=== PATIENT | female | born 1975 | race American Indian/Alaskan Native ===

== ENCOUNTER → 2022-05-13 13:38 | Outpatient (BNVA) | payer OTHER, SELFPAY | PROVIDERS: PCP Internal Medicine; Visit Provider Internal Medicine | DX: S20.214A Contusion of middle front wall of thorax, initial encounter (principal); S43.151A Posterior dislocation of right acromioclavicular joint, initial encounter; S63.501A Unspecified sprain of right wrist, initial encounter; S29.012A Strain of muscle and tendon of back wall of thorax, initial encounter; W01.198A Fall on same level from slipping, tripping and stumbling with subsequent striking against other object, initial encounter | CPT/HCPCS: 72072; 73030; 99204 ==

== ENCOUNTER → 2022-05-16 14:13 | Outpatient (BNVA) | payer OTHER, SELFPAY | PROVIDERS: PCP Internal Medicine; Visit Provider Internal Medicine | DX: R10.2 Pelvic and perineal pain (principal); M25.511 Pain in right shoulder; M25.531 Pain in right wrist; Z91.81 History of falling | CPT/HCPCS: 73110; 73130; 99214 ==

== ENCOUNTER → 2022-05-24 08:06 | Outpatient (BNVA) | payer OTHER, SELFPAY | PROVIDERS: PCP Internal Medicine; Visit Provider Internal Medicine | DX: M25.551 Pain in right hip (principal); M25.561 Pain in right knee; S63.501A Unspecified sprain of right wrist, initial encounter; W01.198A Fall on same level from slipping, tripping and stumbling with subsequent striking against other object, initial encounter | CPT/HCPCS: 73502; 73564; 99213 ==

== ENCOUNTER → 2022-05-31 07:53 | Outpatient (BNVA) | payer OTHER, SELFPAY | PROVIDERS: PCP Internal Medicine; Visit Provider Internal Medicine | DX: S63.501A Unspecified sprain of right wrist, initial encounter (principal); S70.01XA Contusion of right hip, initial encounter; W01.198A Fall on same level from slipping, tripping and stumbling with subsequent striking against other object, initial encounter | CPT/HCPCS: 99213 ==

== ENCOUNTER → 2022-06-21 15:12 | Outpatient (BNVA) | payer OTHER, SELFPAY | PROVIDERS: PCP Internal Medicine; Visit Provider Internal Medicine | DX: S63.501D Unspecified sprain of right wrist, subsequent encounter (principal); S70.01XD Contusion of right hip, subsequent encounter; W01.198D Fall on same level from slipping, tripping and stumbling with subsequent striking against other object, subsequent encounter | CPT/HCPCS: 99213 ==

== ENCOUNTER → 2022-07-12 14:54 | Outpatient (BNVA) | payer OTHER, SELFPAY | PROVIDERS: PCP Internal Medicine; Visit Provider Internal Medicine | DX: S63.501D Unspecified sprain of right wrist, subsequent encounter (principal); S70.01XD Contusion of right hip, subsequent encounter; W18.30XD Fall on same level, unspecified, subsequent encounter; M25.561 Pain in right knee | CPT/HCPCS: 99213 ==

== ENCOUNTER 2022-07-26 14:30 | Outpatient (RCR) | payer OTHER, SELFPAY ==
--- NOTE | 2022-06-15 14:52 | MHC.OT.EP ---
[address] [phone] Occupational Therapy Plan of Care Date of Evaluation: 06/15/22 Diagnosis: Right wrist sprain Pain Location: Pain: 8/10 R thumb and radial wrist Best: 5/10 Pain Score: 8 Pain Scale Used: Numeric (0 - 10) Aggravating Factors: Forceful grasp, lifting dishes, weightbearing Alleviating Factors: Ice, heat Assessment: Pt is a 46 y/o female referred to OT s/p slip and fall injury resulting in right wrist sprain on 05/13/22. X-rays were negative for fracture or dislocation. Pt has weaned out of wrist cock up splint and is wearing for protection only. 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 A 70.5% limitation was reported per the Quick DASH assessment. Nevaeh would benefit from short term skilled OT to address noted barriers and assist in return to PLOF. Frequency and Duration: The patient will be seen 2x/wk for 4 weeks Short Term Goals: Decrease pain in R wrist <5/10 IND with HEP Improve L gross grasp by 10# Saw Tailer Goals: Pain free with BADL's/IADLS IND with progression of HEP Gross grasp >25# Quick DASH <25% Treatment Plan: Therapeutic Exercise Therapeutic Activity Home Exercise Program Patient Education Ultrasound Paraffin Fluidotherapy MHP Cold Packs Joint Mobilization Soft Tissue Mobilization Kinesiotaping Electronically Signed By: Pema Blackwell MS OTR/L Please Sign and return to therapist. Thank you once again for your referral.
--- NOTE | 2022-07-29 07:42 | MHC.OT.DC ---
[address] [phone] F: [phone] Occupational Therapy Discharge Note Patient Name: Nevaeh Phelps Provider: Dr Thaddeus Ivey Diagnosis: Right wrist sprain Date of Evaluation: 06/15/22 Date of Discharge: Treatments to Date: 8 Discharge Status: Independent with HEP Discharge Summary: Nevaeh was referred to OT with right wrist sprain at work. She continues to report pain w/ certain activities (hand writing, lifting objects, using scissors) and has been reporting more 'muscle spasms' along dorsal forearm. Not witnessed in therapy, but pt w/ significant fascial adhesions (B/L'ly). She has progressed w/ increased gross grasp, but still avoiding heavy lifting and forceful use of hand/wrist, especially w/ wrist deviation. She has been educated on modification techniques and recommend she trial neoprene forearm based thumb spica orthosis, has not purchased yet. We have educated on muscle relaxation techniques and use of heat and ice appropriately. Most goals met but no significant gains made in the last couple weeks, she continues to have persistent moderate pain at times. Electronically Signed By: Kym Peralta OTR/L CHT Reviewed/agree with student documentation: Therapist: Please Sign and return to therapist, thank you for your referral.
== END 2022-07-29 07:42 | disposition home or self-care (01) ==
LOC: HO.OT 14:30
PROVIDERS: PCP Internal Medicine; Visit Provider Internal Medicine
DX: S63.501D Unspecified sprain of right wrist, subsequent encounter (principal)
CPT/HCPCS: 97033; 97035; 97110; 97140; 97165

== ENCOUNTER 2022-08-02 15:00 | Outpatient (RCR) | payer OTHER, SELFPAY ==
--- NOTE | 2022-07-01 13:10 | MHC.PT.EP ---
[facility] [place] [facility] [place] [facility] [place] Office [address] [phone] F: [phone] F: [phone] F: [phone] F: [phone] Physical Therapy Plan of Care Date of Evaluation: Date of Surgery: NA Diagnosis: PAIN BUTTOCKS/HIP AREA S/P FALL Assessment: Pt IS 46 YO F REFERRED TO PT FROM WITH R BUTTOCK AND HIP PAIN S/P FALL WHILE AT WORK. XRAY R HIP NEGATIVE FOR ACUTE FX BUT CANNOT FULLY R/O OCCULT FX OR BONE BRUISE. PRESENTS TO PT WITH ANTALGIC GT (DECREASED WB ON R BUT ALSO C/O BAD KNEE ). Pt WITH LIMITED R HIP FLEXION STRENGTH AND SOME LIMITED R HIP FLEXIBILITY. 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 SHOULD BENEFIT FROM PT TO ADDRESS THESE ISSUES Frequency and Duration: The patient will be seen 2X/WK X 4WKS Short Term Goals: 1. INCREASED AWARENESS HIP AND BACK CARE 2. Pt TO PERF 2-3 TASKS WITH PROPER BODY MECH [facility] Goals: 1. I HEP WITH DC EX PLAN 2. DECREASED R HIP/BUTTOCK PAIN AT LEAST 50% WITH ADLS Treatment Plan: Modalities to reduce pain, spasms and effusion. Manual therapy to restore motion and function. Therapeutic exercise to improve strength and flexibility. Neuromuscular re-education for posture and balance. Therapeutic activities to return to functional activities of daily living. Electronically signed by: TEDDY BAILEY PT Please sign and return to therapist. Thank you for your referral.
--- NOTE | 2022-08-23 12:55 | MHC.PT.DC ---
[facility] [place] [facility] [place] [facility] [place] Office [address] Renato Sparks [address] [phone] F: [phone] F: [phone] F: [phone] F: [phone] Physical Therapy Discharge Report Diagnosis: PAIN BUTTOCKS/HIP AREA S/P FALL Date of Surgery: NA Date of Evaluation: 07/01/22 Date of Discharge: 08/23/22 Treatments to Date: 7 Cancellations to Date: No Shows to Date: Discharge Status: Improved Function Independent with HEP Discharge Summary: REPORTS ORDERED THERAROLLER, GOOD PERF EXS, TO SEE WC ON MONDAY AND CALL AFTER. NO CALL, NO FURTHER APPTS SCHEDULED Electronically signed by: TEDDY BAILEY PT Please sign and return to therapist. Thank you for your referral.
== END 2022-08-23 12:55 | disposition home or self-care (01) ==
LOC: HO.PT 15:00
PROVIDERS: PCP Internal Medicine; Visit Provider Internal Medicine
DX: M25.551 Pain in right hip (principal); M76.01 Gluteal tendinitis, right hip; Z91.81 History of falling
CPT/HCPCS: 97110; 97140; 97161

== ENCOUNTER → 2022-08-05 13:47 | Outpatient (BNVA) | payer OTHER, SELFPAY | PROVIDERS: PCP Internal Medicine; Visit Provider Internal Medicine | DX: S70.01XD Contusion of right hip, subsequent encounter (principal); S63.501D Unspecified sprain of right wrist, subsequent encounter; W18.30XD Fall on same level, unspecified, subsequent encounter; M62.81 Muscle weakness (generalized) | CPT/HCPCS: 99213 ==

== ENCOUNTER → 2022-08-23 11:14 | Outpatient (BNVA) | payer OTHER, SELFPAY | PROVIDERS: PCP Internal Medicine; Visit Provider Internal Medicine | DX: M25.531 Pain in right wrist (principal) | CPT/HCPCS: 99213 ==

== ENCOUNTER 2022-09-01 11:57 | Outpatient (REF) | payer OTHER, SELFPAY ==
--- NOTE | 2022-09-01 08:00 | EMG_ITS ---
FINDINGS: Right median, ulnar, motor, and sensory studies were performed. Right radial sensory study was performed and paraspinal muscles were tested. IMPRESSION: [id number] right median neuropathy across carpal tunnel. EMG data was somewhat limited and radiculopathy could not be completely ruled out. MD CHASITY Clay/JULIA / [id number]
== END 2022-09-01 11:58 | disposition home or self-care (01) ==
LOC: HO.NEURO 11:57
PROVIDERS: PCP Internal Medicine; Visit Provider Internal Medicine
DX: R20.2 Paresthesia of skin (principal)
CPT/HCPCS: 95886; 95909

== ENCOUNTER → 2022-09-12 15:28 | Outpatient (BNVA) | payer OTHER, SELFPAY | PROVIDERS: PCP Internal Medicine; Visit Provider Internal Medicine | DX: M79.641 Pain in right hand (principal) | CPT/HCPCS: 99213 ==

== ENCOUNTER → 2024-03-28 13:09 | Outpatient (BNVA) | payer OTHER, SELFPAY | PROVIDERS: PCP Internal Medicine; Visit Provider Physician Assistant Medical | DX: S69.91XA Unspecified injury of right wrist, hand and finger(s), initial encounter (principal); W22.8XXA Striking against or struck by other objects, initial encounter | CPT/HCPCS: 73130; 99202 ==

== ENCOUNTER → 2024-04-01 14:58 | Outpatient (BNVA) | payer OTHER, SELFPAY | PROVIDERS: PCP Internal Medicine; Visit Provider Physician Assistant Medical | DX: M79.89 Other specified soft tissue disorders (principal) | CPT/HCPCS: 99213 ==

== ENCOUNTER → 2024-04-15 14:53 | Outpatient (BNVA) | payer OTHER, SELFPAY | PROVIDERS: PCP Internal Medicine; Visit Provider Physician Assistant Medical | DX: S69.91XD Unspecified injury of right wrist, hand and finger(s), subsequent encounter (principal); W22.8XXD Striking against or struck by other objects, subsequent encounter | CPT/HCPCS: 99213 ==

== ENCOUNTER 2024-09-10 07:34 | Emergency (ER) | payer BC, SELFPAY ==
--- NOTE | ~2024-09-10 | XR_ITS ---
EXAMINATION: XR KNEE 1-2 VIEWS RIGHT HISTORY: pain COMPARISON: Comparison is made with the prior examination dated 05/24/2022. FINDINGS: Three views of the right knee are submitted. Osseous mineralization is normal. There is no fracture or dislocation. There is severe osteoarthritis of the medial compartment with joint space narrowing and osteophyte formation. There is moderate osteoarthritis of the lateral and patellofemoral compartments. There is a small joint effusion. XR/XR knee RT 2V IMPRESSION: Small joint effusion. Osteoarthritis of the right knee as described Electronically signed by: Alexsander Kapadia MD 09/10/2024 08:22 AM EDT
--- NOTE | ~2024-09-10 | US_ITS ---
EXAMINATION: US TRIPLEX LOWER EXTREMITY, RIGHT CLINICAL INFORMATION: Pain, right lower extremity COMPARISON: None available. TECHNIQUE: Color-flow triplex imaging with spectral analysis and compression Doppler were performed on the right lower extremity. FINDINGS: Respiratory variation, normal compression and augmented flow are noted throughout the interrogated common femoral vein, superficial femoral vein, profunda femoral vein, popliteal vein and midcalf peroneal and posterior tibial venous segments. There is no Fernandez's cyst. US/US venous duplex LE RT IMPRESSION: No acute deep venous thrombosis involving the right lower extremity. Negative for DVT. Electronically signed by: Abdi Baker MD 09/10/2024 10:17 AM EDT
[2024-09-10 07:36] VITALS: BP 143/103; PULSE 91; RESP 18; TEMP 37; O2SAT 100; BMI 52.3
--- OUTSIDE RECORDS SUMMARY | 2024-09-10 08:13 | XMS_ITS | Continuity of Care Document ---
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 Developer Name Role Phone Gena CORDOVA, Henrique Moss Primary Care Physician [place] [facility] [place] 08/[place] - 09/08/24 [facility] [address] [place] [id number] Attending Physician: Jose Hackett Admitting Physician: Jose Hackett Referring Physician: Jose Hackett Encounter Type: Triage Allergies, Adverse Reactions, Alerts Substance Criticality Severity Reaction Reaction Severity Status clarithromycin swelling Activ e penicillin Active penicillins Angioedema Active oxyCODONE Unknown Active HYDROcodone Unknown Active diclofenac kidney dysfunction Active sulfa drugs 1 Unknown severe hives Active Voltaren kidney problems rash Active Biaxin extreme swelling Act bridger OxyContin Active Vicodin Active Bee Stings Active Strawberries Active Tomatoes Active Percocet 7.5/325 vomiting Act bridger Other Food Allergy cottage cheese Active Other Environmental Allergy 2 Active 1sulfa allergy 2spiders Immunizations Given and Recorded Vaccine Date Status Refusal Reason SARS-CoV-2 (COVID-19) mRNA-1273 vaccine 09/03/20 R ecorded SARS-CoV-2 (COVID-19) mRNA-1273 vaccine 08/01/20 R ecorded Medications Albuterol (Eqv-ProAir HFA) 90 mcg/inh inhalation aerosol 2 puffs, Inhalation, Every 6 hours, # 6.7 Gm, 11 Refills, Maintenance, 09/05/23 4:03:00 PM EDT, [email or web address] #[id number], Partial fill upon patient request if the prescription is for a schedule II opioid drug., 2 puffs Inhalation Every 6 hours, 177.8, cm, 09/05/23 15:39:00 EDT, Height, 181.8, kg,08/21/23 15:18:00 EDT, Dry Weight Start Date: 09/05/23 Status: Ordered Quantity: 6.7 Unit: g Repeat number: 12 albuterol 0.083% inhalation solution 3 mL = 2.5 mg, Neb, Every 6 hours, PRN Wheezing/Shortness of Breath, # 360 mL, 11 Refills, Maintenance, 09/05/23 4:03:00 PM EDT, Inhalation Solution, [email or web address] #[id number], Partial fill upon patient request if the prescription is for a schedule II opioid drug. Disregard previous script with albuterol inhaled solution, 177.8, cm, 09/05/23 15:39:00 EDT, Height, 181.8, kg, 08/21/23 15:18:00 EDT, Dry Weight Start Date: 09/05/23 Status: Ordered Quantity: 360.0 Unit: mL Repeat number: 12 aluminum hydroxide/magnesium hydroxide/simethicone 200 mg-200 mg-20 mg/5 mL oral suspension 10 mL, By Mouth, 4 times a day, PRN for indigestion, # 400 mL, 0 Refills, Maintenance, 03/27/22 2:52:00 PM EST, Suspension, [email or web address] #[id number], Partial fill upon patient request if the prescription is for a schedule II opioid drug., 10 mL By Mouth 4 times a day,PRN:for indigestion, 178, cm, 03/27/22 10:02:00 EST, Height, 203.2, kg, 03/25/22 7:10:00 EST, Dry Weight Start Date: 03/27/22 Status: Ordered Quantity: 400.0 Unit: mL Repeat number: 1 amLODIPine 10 mg oral tablet TAKE 1 TABLET BY MOUTH EVERY DAY Start Date: 08/09/24 Status: Ordered Repeat number: 1 Bilateral Juxtafit Thigh-high Compression Garments with 2 pairs of hybrid socks Bilateral Juxtafit Thigh-high Compression Garments with 2 pairs of hybrid socks, See Instructions, # 1 kit, Refills 0, Tot. Refills 0, Maintenance, Dx: Lymphedema. Use daily up to 23 hours per day., 03/28/23 5:02:00 PM EST, Supply Start Date: 03/28/23 Status: Ordered Quantity: 1.0 Unit: kit Repeat number: 1 Indication: Lymphedema, not elsewhere classified BiPAP Machine See Instructions, # 1 each, Maintenance, BiPAP 20/12, 04/14/17 4:14:49 PM EST, Compound Start Date: 04/14/17 Status: Ordered Quantity: 1.0 Unit: each Repeat number: 1 cbc in days cbc in days, See Instructions, # 1 each, Refills 0, Tot. Refills 0, Maintenance, Pls send the results to Henrique Avery , her PCP, 01/31/21 9:37:00 AM EDT, Supply Start Date: 01/31/21 Status: Ordered Quantity: 1.0 Unit: each Repeat number: 1 cetirizine 10 mg oral tablet 1 tablet, By Mouth, Daily, # 30 tablet, 11 Refills, Maintenance, 09/05/23 4:03:00 PM EDT, [email or web address] #[id number], 177.8, cm, 09/05/23 15:39:00 EDT, Height, 181.8, kg, 08/21/23 15:18:00 EDT, Dry Weight Start Date: 09/05/23 Status: Ordered Quantity: 30.0 Unit: tablet Repeat number: 12 cholecalciferol 5000 intl units oral capsule 1 capsule = 125 mcg, By Mouth, Daily, along with 2000 mg for a total of 7000 mg daily, Maintenance,01/04/21 3:06:00 PM EDT, Capsule Start Date: 01/04/21 Status: Ordered Repeat number: 1 cyclobenzaprine 5 mg oral tablet prn, 0 Refills, Maintenance, 08/09/24 7:56:00 AM EDT, Partial fill upon patient request if the prescription is for a schedule II opioid drug. Start Date: 08/09/24 Status: Ordered Repeat number: 1 doxycycline hyclate 100 mg oral capsule 1 capsule = 100 mg, By Mouth, 2 times a day, # 20 capsule, 0 Refills, Maintenance, 02/28/21 10:43:00 PM EDT, Capsule, Partial fill upon patient request if the prescription is for a schedule II opioiddrug. Start Date: 02/28/21 Status: Ordered Quantity: 20.0 Unit: capsule Repeat number: 1 Finacea 15% topical gel 1 application, Topically, Daily, PRN as needed, 0 Refills, Maintenance, 02/19/18 12:58:34 PM EDT, Gel Start Date: 02/19/18 Status: Ordered Repeat number: 1 Flonase Allergy Relief 50 mcg/inh nasal spray 1 sprays = 50 mcg, Nares, Both, 2 times a day, PRN Congestion, # 16 Gm, 11 Refills, Maintenance, 09/05/23 4:04:00 PM EDT, [email or web address] #[id number], Partial fill upon patient request if the prescription is for a schedule II opioid drug., 177.8, cm, 09/05/23 15:39:00 EDT, Height, 181.8, kg, 08/21/23 15:18:00 EDT, Dry Weight Start Date: 09/05/23 Stop Date: 08/30/24 Status: Ordered Quantity: 16.0 Unit: g Repeat number: 12 hydrochlorothiazide 25 mg oral tablet 25 mg, 1, tablet, By Mouth, Daily, Maintenance, 01/04/21 3:04:00 PM EDT Start Date: 01/04/21 Status: Ordered Repeat number: 1 hydroxychloroquine 200 mg oral tablet 400 mg, 2, tablet, By Mouth, 2 times a day, Maintenance, 01/04/21 3:04:00 PM EDT Start Date: 01/04/21 Status: Ordered Repeat number: 1 hydrOXYzine hydrochloride 10 mg oral tablet 1-2 tablets, By Mouth, 4 times a day, PRN as needed for itching, 0 Refills, Maintenance, 03/21/18 11:45:36 AM EST, Tablet Start Date: 03/21/18 Status: Ordered Repeat number: 1 levonorgestrel 52 mg intrauterine device 1 each = 52 mg, Intrauterine, Once, # 1 each, 0 Refills, Soft Stop, 05/16/22 5:31:00 PM EST, [facility], Partial fill upon patient request if the prescription is for a schedule II opioid drug., 178, cm, 05/16/22 16:30:00 EST, Height, 198.63, kg, 05/16/22 16:30:00 EST, Dry Weight Start Date: 05/16/22 Status: Ordered Quantity: 1.0 Unit: each Repeat number: 1 lisinopril 2.5 mg oral tablet 2.5 mg, 1, tablet, By Mouth, Daily, # 30 tablet, Refills 0, Tot. Refills 0, Maintenance, 01/31/21 9:43:00 AM EDT, Route to Pharmacy Electronically, [facility], Partial fill upon patient request if the prescription is for a schedule II opioid drug., 177, cm, 01/08/21 4:46:00 EDT, Height, 221.02, kg, 01/03/21 21:12:00 EDT, Dry Weight Start Date: 01/31/21 Status: Ordered Quantity: 30.0 Unit: tablet Repeat number: 1 Metoprolol Succinate ER 50 mg oral tablet, extended release 1 tablet = 50 mg, By Mouth, Daily, # 30 tablet, 0 Refills, Maintenance, 01/03/21 2:02:00 PM EDT, ER Tablet, Partial fill upon patient request if the prescription is for a schedule II opioid drug. Start Date: 01/03/21 Status: Ordered Quantity: 30.0 Unit: tablet Repeat number: 1 Mounjaro 5 mg/0.5 mL subcutaneous solution ADMINISTER 5 MG UNDER THE SKIN EVERY WEEK Start Date: 08/09/24 Status: Ordered Repeat number: 1 Omeprazole = 20 mg, By Mouth, 2 times a day, 0 Refills, Maintenance, 01/14/16 8:54:44 AM EDT Start Date: 01/14/16 Status: Ordered Repeat number: 1 pioglitazone 30 mg oral tablet 1 tablet = 30 mg, By Mouth, Daily, # 30 tablet, 0 Refills, Maintenance, 01/03/21 2:02:00 PM EDT, Tablet, Partial fill upon patient request if the prescription is for a schedule II opioid drug. Start Date: 01/03/21 Status: Ordered Quantity: 30.0 Unit: tablet Repeat number: 1 Provera 10 mg oral tablet 20 mg, 2, tablet, By Mouth, Daily, take 20mg (2tablets) daily for 5 days and the decrease to 10mg (1 tab) daily on 6th day, # 10 tablet, Refills 0, Tot. Refills 0, Maintenance, 12/27/21 7:47:00 PM EDT, Route to Pharmacy Electronically, [id number], Partial fill upon patient request if the prescription is for a schedule II opioid drug., 172.5, cm, 12/27/21 17:21:00 EDT, Height, 199.5, kg, 12/27/21 17:09:00 EDT, Dry Weight Start Date: 12/27/21 Stop Date: 01/01/22 Status: Ordered Quantity: 10.0 Unit: tablet Repeat number: 1 Provera 10 mg oral tablet 10 mg, 1, tablet, By Mouth, Daily, # 30 tablet, Refills 3, Tot. Refills 3, Maintenance, 11/02/21 11:49:00 AM EDT, Route to Pharmacy Electronically, [id number], Partial fill upon patient request if the prescription is for a schedule II opioid drug., 177.8, cm, 09/22/21 15:15:00 EDT, Height, 221.36, kg, 04/26/21 14:38:00 EST, Dry Weight Start Date: 11/02/21 Status: Ordered Quantity: 30.0 Unit: tablet Repeat number: 4 Singulair 10 mg oral tablet 10 mg, 1, tablet, By Mouth, Daily, # 30 tablet, Refills 11, Tot. Refills 11, Maintenance, 09/05/23 4:03:00 PM EDT, Route to Pharmacy Electronically, [facility] #[id number], Partial fill upon patient request if the prescription is for a schedule II opioid drug., 177.8, cm, 09/05/23 15:39:00 EDT,Height, 181.8, kg, 08/21/23 15:18:00 EDT, Dry Weight Start Date: 09/05/23 Status: Ordered Quantity: 30.0 Unit: tablet Repeat number: 12 Trulicity Pen 0.75 mg/0.5 mL subcutaneous solution 0.5 mL = 0.75 mg, Subcutaneous Injection, Every Monday, 0 Refills, Maintenance, 01/03/21 2:01:00 PM EDT, Solution Start Date: 01/03/21 Status: Ordered Repeat number: 1 Ailynxchance Inhub 500 mcg-50 mcg inhalation powder 1 inhalation, Inhalation, 2 times a day, rinse mouth and throat after use, # 1 each, 11 Refills, Maintenance, 09/05/23 4:03:00 PM EDT, Powder, [facility] #[id number], Partial fill upon patient request if the prescription is for a schedule II opioid drug., 1 inhalation Inhalation 2 times a day,Instr:rinse mouth and throat after use, 177.8, cm, 09/05/23 15:39:00 EDT, Height, 181.8, kg, 08/20/2414:18:00 EDT, Dry Weight Start Date: 09/05/23 Status: Ordered Quantity: 1.0 Unit: each Repeat number: 12 Problem List Condition Confirmation Course Effective Dates Status H ealth Status Informant Carpal tunnel syndrome Confirmed 05/08/15 Active DM (diabetes mellitus) Confirmed Active EIN (endometrial intraepithelial neoplasia) Confirmed Active Essential hypertension Confirmed 10/09/13 Active GERD (gastroesophageal reflux disease) Confirmed Active Morbid obesity with BMI of 60.0-69.9, adult Confirmed Active Morbid obesity Confirmed 12/31/18 Active NIKKO (obstructive sleep apnea) Confirmed Active OA (osteoarthritis) Confirmed Active Pulmonary embolus Confirmed Active Rosacea Confirmed 10/27/17 Active Severe obesity Confirmed Active Lupus Confirmed Active Social History Social History Type Response Smoking Status Never smoker entered on: 01/13/16 Sex Sex Representation Female (finding) Patient Care team information Care Team Personnel Name: Liat Nelson RN Position: [facility] ED RN W/OE and Tasks Member Role: Primary Care Nurse Name: Jodi Carranza RN Position: [facility] RN Member Role: Primary Care Nurse Name: Lulu Bailon RN Position: [facility] RN Member Role: Primary Care Nurse Name: Henrique Avery MD Position: [facility] Outreach Member Role: PCP Address: [address] [place] [address], [address] [email or web address]: Name: Yoanna Sepulveda RN Position: [facility] RN Member Role: Primary Care Nurse Name: Adriana Rodriguez RN Position: [facility] RN Member Role: Primary Care Nurse Name: Fiona Cohen RN Position: [facility] AMB Nurse Member Role: Primary Care Nurse Name: Huong Shah RN Position: [facility] RN Member Role: Primary Care Nurse Name: Johanny Rangel RN Position: [facility] RN Member Role: Primary Care Nurse Name: Cas Tang RN Position: [facility] RN Member Role: Primary Care Nurse Care Team Related Persons Name: CESAR DARIO Name: IVY MORA Name: DAVID BEVERLY Name: RONALDO COCHRAN Insurance Providers Guarantor name: FLIP COCHRAN [facility] Plan Information #: 1 Payer: O [employer] Member Number: NA Policy Number: NA Group Number: NA
--- NOTE | 2024-09-10 08:27 | ED_ITS ---
HPI - Extremity Injury (Lower) General Chief Complaint: Extremity Injury, Lower Stated Complaint: R knee pain Time Seen by Provider: 09/10/24 08:01 Source: patient Mode of arrival: ambulatory Limitations: no limitations History of Present Illness ED Provider: CARIDAD MONTIEL PA-C HPI Narrative: 48-year-old female with past medical history significant for lupus, osteoarthritis, morbid obesity presents to the ED today for evaluation of acute on chronic right knee pain x3-4 days. Reports history of severe osteoarthritis in bilateral knees. She typically gets corticosteroid injections in her knees. Her last injection was in May with improvement. At that time, she had mentioned to her doctor that she was having pain behind her right knee. Her provider mentioned that she may have a Fernandez's cyst however she did not have any further imaging to confirm this. Reports on Monday she felt a popping sensation to the back of her right knee. States she has felt unsteady on her right lower extremity since this time. She had another episode this weekend where she felt a popping in the back of her right the along with vibrations , causing her to fall to the ground. Denies head strike or LOC. Not on AC. She has been able to ambulate however is unable to fully bear weight on her right lower extremity due to the discomfort. Has been taking Tylenol and Motrin at home with minimal relief. Her last dose was around 0500 this morning Denies fever, chills, chest pain, shortness of breath, palpitations, calf pain/swelling, numbness/tingling/weakness of the right lower extremity. No recent travel or long car rides. Related Data Allergies Allergy/AdvReac Type Severity Reaction Status Date / Time acetaminophen [From Percocet] Allergy Unconscious Verified 09/10/24 07:39 aliskiren [From Valturna] Allergy Unknown Verified 09/10/24 07:39 oxycodone Allergy Nausea and Verified 09/10/24 07:39 Vomiting valsartan [From Valturna] Allergy Unknown Verified 09/10/24 07:39 Penicillins [PCN] AdvReac Anaphylaxis Verified 09/10/24 07:39 Sulfa (Sulfonamide AdvReac Anaphylaxis Verified 09/10/24 07:39 Antibiotics) Review of Systems Review of Systems: Yes all other systems are reviewed and are negative PMFSH Past Medical History Attestation statement: The following information was validated with the patient. Source: old records reviewed and nursing notes reviewed Social History Social History Advance Directives: No Advance Directives Information Provided: Yes Physical Exam Vital Signs: Vital Signs: Last Vital Signs Temp 98.6 F 09/10/24 07:36 Pulse 91 09/10/24 07:36 Resp 18 09/10/24 07:36 BP 143/103 H 09/10/24 07:36 Pulse Ox 100 09/10/24 07:36 O2 Del Method Room Air 09/10/24 07:36 BMI result Body Mass Index 52.3 hypertensive, vitals otherwise wnl General: Well appearing, in no acute distress. Skin: Warm, dry, intact. No rashes or lesions. Head: Normocephalic, atraumatic. EENT: Hearing is intact b/l. Conjunctiva clear. PERRLA. EOM intact. Moist mucous membranes.? Neck: Supple without LAD Cardiac: Chest wall symmetric. RRR Lungs: Normal respiratory effort without accessory muscle use. CTA bilaterally. Back: No midline spinous or paraspinal tenderness. No step off deformity. Ext: +right knee without noted deformity or overlying skin changes however exam slightly limited due to patient's body habitus. No tenderness to palpation of anterior or lateral aspects of right knee. Tender to palpation of posterior right knee without palpable deformity, mass or fluctuance. Sensation intact to light touch distally. No calf tenderness bilaterally. 2+ DP pulse intact. Ambulating with limping gait. Neuro: AOx3. Normal speech. Course Course Course Narrative: 09 -- x-ray right knee showing small joint effusion and severe osteoarthritic changes. There is no noted fracture or dislocation. Given patient's symptoms, will obtain ultrasound of right lower extremity to rule out DVT/Fernandez's cyst. Medicated with Tylenol. Will continue to monitor. 1038 -- ultrasound the right lower extremity does not demonstrate DVT or Fernandez's cyst. No acute pathology. I have suspicion that patient's symptoms are secondary to severe osteoarthritis in the knee versus ligament or tendon injury. Discussed all workup results with patient. She is agreeable to knee immobilizer and crutches. These have been ordered. She has follow up with her nail specialist at [facility] in 1 week. advised tylenol/motrin for pain. Patient has remained stable throughout ED visit today. Discussed worrisome signs and symptoms and when to return to the ED. All questions answered at this time. Patient is agreeable with disposition and stable for discharge. Medications Administered Discontinued Medications Generic Name Dose Route Start Last Admin Trade Name Onesimo PRN Reason Stop Dose Admin Acetaminophen 975 mg 09/10/24 09:00 09/10/24 09:22 Acetaminophen 325 Mg Tablet PO 09/10/24 09:01 975 mg ONCE ONE Administration Medical Decision Making Medical Decision Making MDM Narrative: 48-year-old female with past medical history significant for lupus, osteoarthrit is, morbid obesity presents to the ED today for evaluation of acute on chronic right knee pain x3-4 days. Hypertensive, vitals otherwise WNL. Not hypoxic or tachycardic. on exam, right knee without noted deformity or overlying skin changes however exam slightly limited due to patient's body habitus. No tenderness to palpation of anterior or lateral aspects of right knee. Tender to palpation of posterior right knee without palpable deformity, mass or fluctuance. Sensation intact to light touch distally. No calf tenderness bilaterally. 2+ DP pulse intact. Ambulating with limping gait. Differential diagnosis includes arthritis, tendonitis, Fernandez's cyst, DVT, MSK sprain/strain, fracture, dislocation. Unlikely neurovascular compromise, threat to limb, compartment syndrome follow up warmth. Presentation not consistent with pseudogout or gout. X-ray ordered from triage. Will order venous duplex. Tylenol given for pain. Will re-evaluate. Differential Diagnosis Differential Diagnoses: The differential diagnosis associated with the presentation includes as above. Admission/Observation not indicated. Independent Interpretation I performed an independent interpretation of an: Plain X-Ray and Ultrasound Interpretation: xr right knee without noted fracture or dislocation venous duplex RLE w/o clot Radiology Impression Discussion of test interpretation with radiology: I have reviewed the radiologist's reading. Radiologist Impression: Procedure(s): XR knee RT 2V Accession Number(s): [id number] cc: HENRIQUE AVERY MD; Lizzeth Bartholomew MD~ EXAMINATION: XR KNEE 1-2 VIEWS RIGHT HISTORY: pain COMPARISON: Comparison is made with the prior examination dated 05/24/2022. FINDINGS: Three views of the right knee are submitted. Osseous mineralization is normal. There is no fracture or dislocation. There is severe osteoarthritis of the medial compartment with joint space narrowing and osteophyte formation. There is moderate osteoarthritis of the lateral and patellofemoral compartments. There is a small joint effusion. XR/XR knee RT 2V IMPRESSION: Small joint effusion. Osteoarthritis of the right knee as described Procedure(s): US venous duplex LE RT Accession Number(s): [id number] cc: HENRIQUE AVERY MD; Caridad Montiel~ EXAMINATION: US TRIPLEX LOWER EXTREMITY, RIGHT CLINICAL INFORMATION: Pain, right lower extremity COMPARISON: None available. TECHNIQUE: Color-flow triplex imaging with spectral analysis and compression Doppler were performed on the right lower extremity. FINDINGS: Respiratory variation, normal compression and augmented flow are noted throughout the interrogated common femoral vein, superficial femoral vein, profunda femoral vein, popliteal vein and midcalf peroneal and posterior tibial venous segments. There is no Fernandez's cyst. US/US venous duplex LE RT IMPRESSION: No acute deep venous thrombosis involving the right lower extremity. Negative for DVT. External Record Review External record reviewed: Inpatient record Prescription Management I considered prescription management with: Pain Medication Chronic Conditions Patient?s care impacted by: Other (lupus, OA) Social Determinants Patient?s care significantly limited by Social Determinants of Health including: Other Social Determinant of Health Procedures Orthopedic Splinting/Casting Injury #1: Side: right Lower Extremity Injury Location: knee Lower Extremity Immobilizer: knee immobilizer Other Orthopedic Equipment: crutches Critical Care Time Critical Care Time Critical Care Time: No Discharge Plan Discharge Clinical Impression: Osteoarthritis of right knee, Effusion of knee Patient Disposition: Home, Self-Care Instructions: Osteoarthritis (ED) Additional Instructions: You were evaluated in the ED today for right knee pain. The xray of your right knee shows severe osteoarthritis with small effusion (fluid). There is not obvious fracture. The ultrasound of your right leg does not show a fernandez's cyst or deep clot. You were placed in a knee immobilizer and provided with crutches today. Where this knee immobilizer and use crutches until you follow up with your orthopedic provider on Monday. You may remove this to shower. Continue Tylenol/Motrin at home as needed for pain/discomfort. Return with any new or worsening symptoms. In the case of an emergency call 911. Referrals: Henrique Avery MD [Primary Care Provider] - Stand Alone Forms: Work/School Release Print Language: Japanese
[2024-09-10] MEDS: Acetaminophen 325 MG TABLET 975 MG PO (09:22)
[2024-09-10 11:42] VITALS: BP 143/99; PULSE 77; RESP 16; TEMP 36.5; O2SAT 94
[2024-09-10 11:49] VITALS: BP 143/99; PULSE 77; RESP 16; TEMP 36.5; O2SAT 94
== END 2024-09-10 11:49 | disposition home or self-care (01) ==
PROVIDERS: Emergency Provider Emergency Medicine Emergency Medical Services; PCP Internal Medicine
DX: M25.461 Effusion, right knee (principal); M17.11 Unilateral primary osteoarthritis, right knee; M79.661 Pain in right lower leg
CPT/HCPCS: 73560; 93971; 99283; 99284

== ENCOUNTER → 2024-09-10 08:00 | Outpatient (BNV) | payer BC, SELFPAY | PROVIDERS: Emergency Provider Emergency Medicine Emergency Medical Services; PCP Internal Medicine; Visit Provider Radiology Diagnostic Radiology | DX: M79.661 Pain in right lower leg (principal); M25.461 Effusion, right knee; M17.11 Unilateral primary osteoarthritis, right knee | CPT/HCPCS: 73560; 93971 ==